=== PATIENT | male | born 1995 | race Caucasian/White ===

== ENCOUNTER 2020-10-26 16:42 | Emergency (ER) | payer OTHER ==
[~2020-10-26] VITALS: Ht 188 cm; Wt 79.4 kg
[2020-10-26 17:17] LABS: ANION GAP 11 mmol/L (7-16); BUN 14 mg/dL (7-18); CALCIUM 9.6 mg/dL (8.5-10.1); CHLORIDE 104 mmol/L (98-107); CO2 26 mmol/L (21-32); CREATININE 1.1 mg/dL (0.7-1.3); GLUCOSE 86 mg/dL (74-106); SODIUM 141 mmol/L (136-145)
[2020-10-26 17:26] LABS: HEMATOCRIT 47.4 % (42.0-52.0); HEMOGLOBIN 15.8 gm/dL (14.0-18.0); MCH 30.8 pg (26.0-34.0); MCHC 33.5 g/dL (28.0-37.0); RBC 5.15 mil/uL (4.50-6.00); RDW 12.7 % (10.5-14.5); TROPONIN-I <0.06 ng/mL (<0.06); WBC 11.3 thou/uL (4.0-11.0)
[2020-10-26 18:02] LABS: PLATELET COUNT 199 thou/uL (150-400)
[2020-10-26 18:03] LABS: ANISOCYTOSIS 1+; HYPOCHROMASIA SLIGHT
[2020-10-26 18:10] VITALS: BP 111/55
--- NOTE | 2020-10-27 14:36 | EKG ---
[address] [address] ELECTROCARDIOGRAM REPORT Name: RAIMUNDO WANG [id number] Admission: 10/26/20 Attend Phys: Discharge: 10/26/20 Date of : [birth year] Report #: [id number] [facility] ED Test Date: 2020-10-26 Test Time: 16:49:03 Pat Name: RAIMUNDO WANG Department: Room: Gender: Cabin Crew: SONYA : 1995 Requested By: Joaquin Treviño Order Number: [id number] MD: Devonte Raya Measurements Intervals [place] Rate: 105 P: 64 [place]: 137 QRS: 48 QRSD: 84 T: 3 QT: 314 QTc: 416 Interpretive Statements Sinus tachycardia Atrial premature complex No previous ECG available for comparison Electronically Signed On 10-27-2020 14:36:51 CDT by Devonte Raya [email or web address] <ELECTRONICALLY SIGNED> By: Devonte Raya MD, [facility] 10/27/20 1436 1649 1649 Devonte Raya MD, FACC /EPI
== END 2020-10-26 18:10 | disposition home or self-care (01) ==
LOC: ER 16:42
PROVIDERS: Nurse Practitioner
DX: R42 Dizziness and giddiness (principal); H53.8 Other visual disturbances; H57.89 Other specified disorders of eye and adnexa; Z90.49 Acquired absence of other specified parts of digestive tract; Z88.4 Allergy status to anesthetic agent; Z88.8 Allergy status to other drugs, medicaments and biological substances; Z88.6 Allergy status to analgesic agent

== ENCOUNTER 2020-10-29 14:23 | Observation (INO) | payer OTHER ==
[~2020-10-29] VITALS: Ht 188 cm; Wt 80.3 kg
[2020-10-29 14:27] VITALS: BP 118/89
[2020-10-29 14:56] LABS: ABSOLUTE NEUTROPHILS 4.3 thou/uL (1.4-8.2); BASOPHILS 0.7 % (0.0-2.0); EOSINOPHILS 0.6 % (0.0-3.0); HEMOGLOBIN 14.7 gm/dL (14.0-18.0); LYMPHOCYTES 18.8 % (24.0-44.0); MCH 31.3 pg (26.0-34.0); MCHC 34.3 g/dL (28.0-37.0); MCV 91.5 fL (80.0-100.0); MONOCYTES 10.5 % (1.0-8.0); PLATELET COUNT 173 thou/uL (150-400); POLYS 69.4 % (36.0-66.0); RDW 13.1 % (10.5-14.5); WBC 6.2 thou/uL (4.0-11.0)
[2020-10-29 15:07] LABS: CALCIUM 9.5 mg/dL (8.5-10.1); POTASSIUM 3.8 mmol/L (3.5-5.1)
[2020-10-29 15:14] LABS: ALBUMIN 4.1 g/dL (3.4-5.0); TOTAL BILIRUBIN 0.5 mg/dL (0.2-1.0); TOTAL PROTEIN 7.5 g/dL (6.4-8.2)
[2020-10-29 23:37] VITALS: BP 125/75
[2020-10-29 23:42] LABS: HEMATOCRIT 41.4 % (42.0-52.0); HEMOGLOBIN 13.7 gm/dL (14.0-18.0)
[2020-10-30] VITALS (10 sets, daily range): BP systolic 98–144; BP diastolic 43–74
[2020-10-30 05:47] LABS: HEMATOCRIT 40.3 % (42.0-52.0); HEMOGLOBIN 13.5 gm/dL (14.0-18.0)
--- NOTE | 2020-10-30 08:17 | NUR ---
ASSESSMENT: CM REVIEWED CHART AND SPOKE WITH PATIENT AT THE BEDSIDE. PT IS ALERT AND ORIENTED X4. PT WAS ADMITTED DUE TO ABDOMINAL PAIN WITH EMESIS THAT WAS RED IN COLOR. PT REPORTS THAT HE LIVES IN AN APT WITH HIS FIANCE. PT REPORTS THAT HE IS ON THE BOTTOM FLOOR SO HAS NO STEPS TO ENTER. PT STATES HE IS FULLY INDEPENDENT WITH ADLS AND AMBULATION. PT REPORTS HE HAS NO PAST HX OF HH. PT REPORTS HIS PCP IS. DR. RANDI SHIELDS. CM DISCUSSED ROLE, PT DOES NOT ANTICIPATE HAVING ANY NEEDS FROM CM. CONSULT IS IN FOR GASTROENTEROLOGY AND AWAITING FURTHER RECOMMENDATIONS AT THIS TIME.
--- NOTE | 2020-10-30 12:57 | NUR ---
PATIENT ARRIVED TO ROOM 433 FROM ER AT 0735. PATEINT ALERT AND ORINT X4, ON ROOM AIR, VITAL SIGNS STABLE, AFBRILE, NPO FOR PROCEDURE LATER TODAY, UP WITH SBA, VOIDED PER URINAL DUMPED BEFORE KNOWING WE NEEDED A UA. RN DOUBLE CHECK ORDERS, WE DO NEED A URINE, LET US KNOW WHEN YOU NEED TO VOID AGAIN AND MAKE SURE NO MATTER WHO IT IS LET THEM KNOW THAT WE NEED A SAMPLE, COVID TEST AND QUESTIONARE DONE FOR PROCEDURE, PATIENT SALINE LOCKED AND LEFT FLOOR AT 1250.
[2020-10-30] MEDS ORDERED: ZOFRAN 4 MG ORAL4 MG PO (15:44)
[2020-10-30] MEDS ORDERED: PROTONIX40 M2 PO (15:44)
--- NOTE | 2020-10-30 17:59 | NUR ---
RN WENT OVER ALL DISCHARGE TEACHING, ALL QUESTIONS ANSWERED, IV OUT, AND WHEELED OUT IN WHEELCHAIR.
--- NOTE | 2020-10-31 13:24 | P ---
[facility] [place] [address] PROCEDURE REPORT Name: RAIMUNDO WANG Room #: 433-[address] [facility] Lucila Beck#: [id number] Admission: 10/29/20 Attend Phys: Gracia Calvo MD Discharge: 10/30/20 Date of : [birth year] Report #: [id number] THIS REPORT FOR: cc: Cherelle Burkett MD, Rebeca A. MD McElhinney, Christian C. MD ~ cc: Gracia Calvo MD DATE OF SERVICE: 10/30/2020 PROCEDURE PERFORMED: Upper endoscopy with biopsies. HISTORY OF PRESENT ILLNESS: The patient is a 25-year-old male with recent nausea, vomiting, hematemesis or coffee-ground emesis. He had been finishing a course of doxycycline, later had Zithromax as well. Several days ago, had a dark red stool, then had several days of nausea and vomiting, later coffee ground type emesis. He had a large paraesophageal hernia apparently and a history of reflux and this was repaired on August 22 of this year. He did initially have dysphagia, but denies any dysphagia at this time. His hemoglobin on admission 14.7, 13.5 today. Plan is for upper endoscopy. DESCRIPTION OF PROCEDURE: The risks and benefits of the procedure were explained to the patient, those risks including but not limited to bleeding, perforation and the risk of sedation. He understood these risks and gave informed consent. Sedation was given using propofol per anesthesia. Next, using a standard Olympus upper endoscope, the scope was placed in the patient's mouth and advanced under direct vision through the esophagus, stomach and into the second portion of the duodenum. In the upper esophagus, a small inlet patch was noted, otherwise, normal. The mid and distal esophagus was normal. GE junction was normal. No evidence of esophagitis or Jessica-Regan tear. There was a mild diffuse gastritis. No evidence of bleeding. No evidence of old blood throughout the exam today. On retroflexion, the fundoplication appears to be intact. The gastric antrum was normal. The pylorus was normal and patent. The duodenal bulb, first and second portion were all normal. The scope was brought back up into the patient's stomach. Biopsies were obtained to rule out the possibility of H. pylori. The scope was then withdrawn and the procedure terminated. The patient tolerated the procedure well. IMPRESSION: 1. Mild gastritis. Possible source of recent coffee-ground emesis. No evidence of bleeding at this time. 2. Surgical changes of fundoplication noted. 3. Otherwise, normal upper endoscopy. RECOMMENDATIONS: 1. Await biopsies. [address] [address] PROCEDURE REPORT Name: RAIMUNDO WANG Rosemary Room #: 433-[address] [facility] Lucila Beck#: [id number] Admission: 10/29/20 Attend Phys: Gracia Calvo MD Discharge: 10/30/20 Date of : [birth year] Report #: [id number] 2. Advance diet as tolerated. If no further nausea or vomiting, would recommend discharge and observing. Thank you for allowing me to participate in his care. <ELECTRONICALLY SIGNED> By: Daniel Palaico MD 10/31/20 1324 1340 2245 Daniel Palacio MD /nt
--- NOTE | 2020-11-01 17:06 | PATH ---
[facility] [place] [address] PATHOLOGY RPT PROCEDURE Name: RAIMUNDO HORNE Room #: 433[facility]I [facility] Lucila Beck#: [id number] Admission: 10/29/20 Date of : [birth year] Discharge: 10/30/20 Report #: [id number] Path Case #: [id number] [facility] Accession Number: [id number] . 01 Material submitted: . stomach - BIOPSY GASTRITIS RULE OUT H. PYLORI. Modifiers: GASTRIC . 01 Clinical history: . EGD HEMATEMESIS ABD PAIN, UPPER GI BLEED . 02 Diagnosis: Gastric mucosa, gastritis R/O H. pylori, endoscopic biopsy: - Mild chronic inflammation. - Negative for intestinal metaplasia or atrophy. - Negative for Helicobacter pylori (properly controlled immunohistochemical stain performed). (IUV:derek; 11/01/2020) QMS 11/01/2020 1628 Local . 02 Electronically signed: . Abbie Frausto MD, Pathologist NPI- [id number] . 01 Gross description: . The specimen is received in formalin, labeled "Raimundo Horne and BX gastritis R/O H. pylori". It consists of 4 wellington irregular soft tissue fragments measuring 0.6 x 0.5 x 0.2 cm in aggregate. The specimen is entirely submitted between sponges in A1. (MRF; 10/31/2020) MFE/MFE 11/01/2020 1627 Local . 02 Pathologist provided ICD-10: K29.50 . 02 CPT . 111949, [id number] Specimen Comment: A courtesy copy of this report has been sent to [phone] Specimen Comment: 1886, Specimen Comment: Report sent to , DR SHIELDS / DR MOONEY Performed at: [address], [place], [place] [id number] MD Vineet Fontana MD Phone: [phone] Performed at: 02 [place] [address] PATHOLOGY RPT PROCEDURE Name: JERI HORNEEN W Room #: 433-I [facility] Lucila Beck#: [id number] Admission: 10/29/20 Date of : [birth year] Discharge: 10/30/20 Report #: [id number] Path Case #: [id number] [facility] [address] [id number] MD Abbie Frausto MD Phone: [phone]
== END 2020-10-30 18:28 | disposition home or self-care (01) ==
LOC: ER 14:23 → EROBS 18:43 → 4S 10-30 07:46
PROVIDERS: Emergency Medicine; ADMIT Hospitalist; ATTEND Hospitalist
DX: K29.00 Acute gastritis without bleeding (principal); K92.2 Gastrointestinal hemorrhage, unspecified; H53.8 Other visual disturbances; Z87.891 Personal history of nicotine dependence; Z79.899 Other long term (current) drug therapy; Z20.822 Contact with and (suspected) exposure to COVID-19
CPT/HCPCS: 62110; 62900; 70005

== ENCOUNTER 2020-11-03 15:12 | Inpatient (IN) | payer OTHER ==
[~2020-11-03] VITALS: Ht 188 cm; Wt 70.8 kg
[~2020-11-03 15:12] MED LIST: PROTONIX40 M2 PO; ZOFRAN 4 MG ORAL4 MG PO
[2020-11-03 15:16] VITALS: BP 116/88
[2020-11-03] MEDS ORDERED: ATIVAN0.5 M1 PO (15:31)
[2020-11-03 15:58] LABS: ABSOLUTE NEUTROPHILS 5.7 thou/uL (1.4-8.2); BASOPHILS 0.9 % (0.0-2.0); EOSINOPHILS 0.6 % (0.0-3.0); HEMATOCRIT 46.2 % (42.0-52.0); HEMOGLOBIN 15.5 gm/dL (14.0-18.0); LYMPHOCYTES 22.1 % (24.0-44.0); MCHC 33.7 g/dL (28.0-37.0); MCV 91.9 fL (80.0-100.0); MONOCYTES 10.1 % (1.0-8.0); PLATELET COUNT 194 thou/uL (150-400); POLYS 66.3 % (36.0-66.0); RBC 5.02 mil/uL (4.50-6.00); RDW 12.8 % (10.5-14.5); WBC 8.7 thou/uL (4.0-11.0)
[2020-11-03 16:03] LABS: CALCIUM 9.4 mg/dL (8.5-10.1); CREATININE 1.1 mg/dL (0.7-1.3); POTASSIUM 3.8 mmol/L (3.5-5.1)
[2020-11-03 16:10] LABS: ALBUMIN 4.4 g/dL (3.4-5.0); TOTAL BILIRUBIN 0.4 mg/dL (0.2-1.0)
[2020-11-03 16:21] LABS: URINE BILIRUBIN NEGATIVE (Negative); URINE BLOOD NEGATIVE (Negative); URINE CLARITY CLEAR; URINE COLOR YELLOW; URINE GLUCOSE-RANDOM* NEGATIVE (Negative); URINE KETONES NEGATIVE (Negative); URINE LEUKOCYTES-REFLEX NEGATIVE (Negative); URINE NITRITE-REFLEX NEGATIVE (Negative); URINE PROTEIN (DIPSTICK) NEGATIVE (Negative); URINE SPECIFIC GRAVITY 1.015 (1.005-1.035); URINE UROBILINOGEN 0.2 E.U./dl (0.2-1.0)
[2020-11-03 16:36] LABS: AMP/METHAMP Negative (Negative); BARBITURATES Negative (Negative); BENZODIAZEPINES Negative (Negative); COCAINE Negative (Negative); METHADONE Negative (Negative); OPIATES Negative (Negative); PCP Negative (Negative)
[2020-11-03 21:43] VITALS: BP 105/55
--- NOTE | 2020-11-04 01:23 | NUR ---
PT ARRIVED TO UNIT APPROX 2157. CONSENTS OBTAINED, ADMISSION PACKET PROVIDED, PT ORIENTED TO ROOM AND UNIT. PT AOX4. PT REPORTS 10/10 ABDOMINAL PAIN. PT DENIES SOB WHILE ON ROOM AIR. PT NPO UPON ARRIVAL TO UNIT, PRN PO APAP Q6HR AVAILABLE. ONCALL MASH FILTER PRESS OPERATOR NOTIFIED, PT TO BE SEEN, EMAR UPDATED. PT RECEIVING PRN IV MORPHINE Q4HR WITH POSITIVE EFFECT. PT RESTING IN BED THROUGHOUT SHIFT, AMBULATES INDEPENDENTLY OTHERWISE. FREQUENT REPOSITIONING ENCOURAGED WHILE IN BED, PT NOTED TO SHIFT INDEPENDENTLY. PT VOIDING PER URINAL, INTERMITTENTLY USING BATHROOM OTHERWISE. PT INTERMITTENTLY REPORTING NAUSEA, REFUSING PRN IV ZOFRAN Q6HR. PT ENCOURAGED TO NOTIFY STAFF FOR ALL NEEDS, CALL LIGHT WITHIN REACH, BED LOCKED IN LOWEST POSITION, FREQUENT MONITORING WILL CONTINUE.
[2020-11-04 05:26] LABS: HEMATOCRIT 39.7 % (42.0-52.0); HEMOGLOBIN 13.3 gm/dL (14.0-18.0); MCH 31.1 pg (26.0-34.0); MCHC 33.5 g/dL (28.0-37.0); MCV 92.7 fL (80.0-100.0); RBC 4.29 mil/uL (4.50-6.00); RDW 12.9 % (10.5-14.5); WBC 7.3 thou/uL (4.0-11.0)
[2020-11-04 05:38] LABS: CALCIUM 8.2 mg/dL (8.5-10.1); CREATININE 0.9 mg/dL (0.7-1.3); POTASSIUM 3.7 mmol/L (3.5-5.1)
[2020-11-04 07:00] VITALS: BP 85/47
--- NOTE | 2020-11-04 09:48 | NUR ---
ASSESSMENT: CM REVIEWED CHART AND SPOKE WITH PATIENT AT THE BEDSIDE. PT IS ALERT AND ORIENTED X4. PT WAS ADMITTED DUE TO BLOOD IN STOOL AND INTRACTABLE PAIN. PT REPORTS LIVING WITH HIS FIANCE. PT REPORTS BEING FULLY INDEPENDENT WITH ADLS AND AMBULATION. PT REPORTS NO HX OF HH. PT STATES HIS PCP IS DR. RANDI SHIELDS. CM DISCUSSED ROLE. PT DOES NOT ANTICIPATE HAVING ANY NEEDS FROM CM. CM WILL CONTINUE TO FOLLOW TO ASSIST NEEDED.
--- NOTE | 2020-11-04 15:03 | NUR ---
PATIENT A&OX4. VERY PLEASANT. COMPLAINS OF ABDOMEN AND RECTAL PAIN. PATIENT HAS NOT SHOWN ANY BLOOD FROM RECTUM AT THIS TIME. PHYSICIAN MADE CHANGES TO PAIN MEDICATION. COLONOSCOPY SCHEDULED FOR TOMORROW. PATIENT WILL BE NPO AFTER MIDNIGHT. PATIENT PUT ON LIQUID DIET UNTIL MIDNIGHT. IV FLUIDS REMAIN INFUSING. NO FURTHER COMPLAINTS AT THIS TIME. WILL CONTINUE TO MONITOR.
--- NOTE | 2020-11-04 15:15 | EKG ---
[address] [address] ELECTROCARDIOGRAM REPORT Name: RAIMUNDO WANG Room #: 441- ADM IN M.R.#: [id number] Admission: 11/03/20 Attend Phys: Hong Ramos MD Discharge: Date of : [birth year] Report #: [id number] [facility] ED Test Date: 2020-11-03 Test Time: 15:31:42 Pat Name: RAIMUNDO WANG Department: Room: 441 Gender: M Teaching Artist: MEAGN : 1995 Requested By: Hong Ramos Order Number: [id number] MD: Amrik Bowling Measurements Intervals [place] Rate: 87 P: 66 SC: 138 QRS: 62 QRSD: 85 T: 43 QT: 337 QTc: 406 Interpretive Statements Sinus rhythm Compared to ECG 10/26/2020 16:49:03 Sinus tachycardia no longer present Atrial premature complex(es) no longer present Electronically Signed On 11-04-2020 15:15:07 CDT by Amrik Bowling [email or web address] <ELECTRONICALLY SIGNED> By: Amrik Bowling MD, [facility] 11/04/20 1515 153 30 Amrik Bowling MD, FAC /EPI
[2020-11-04 15:53] VITALS: BP 129/67
[2020-11-04 20:10] VITALS: BP 98/51
[2020-11-05 02:40] VITALS: BP 107/58
--- NOTE | 2020-11-05 03:26 | NUR ---
Pt. c/o nausea and was spitting up a small amount clear colored emesis. Prn zofran given (see emar) with some relief noted. IV push toradol also given (see emar) for c/o abdominal pain. No rectal bleeding observed. Currently npo for colonoscopy this am. Pt. took shower during the night.
--- NOTE | 2020-11-05 05:30 | NUR ---
Pt. became angry this morning and wanted his ivf stopped for awhile. He said it was stinging him. This nurse flushed his iv line and it flushed without difficulty. Pt. also upset about his iv sounding off.
[2020-11-05 08:59] VITALS: BP 106/44
[2020-11-05 10:59] LABS: HEMATOCRIT 41.5 % (42.0-52.0); HEMOGLOBIN 13.6 gm/dL (14.0-18.0)
[2020-11-05] MEDS ORDERED: ANUCORT-HC25 MG RECTAL (15:01)
--- NOTE | 2020-11-05 15:37 | NUR ---
ON-GOING ASSESSMENT: CM REVIEWED CHART. PT HAD SCOPE DONE TODAY. PT HAS ORDERS TO DISCHARGE HOME TODAY NO NEEDS. CASE CLOSED.
[2020-11-05 16:07] VITALS: BP 106/44
== END 2020-11-05 17:16 | disposition home or self-care (01) | DRG 394 ==
LOC: ER 15:12 → EROBS 20:48 → 4S 20:48
PROVIDERS: Hospitalist; Nurse Practitioner Family; Physician Assistant; ADMIT Internal Medicine; ATTEND Internal Medicine
PROC: 0DJD8ZZ Inspection of Lower Intestinal Tract, Via Natural or Artificial Opening Endoscopic (ICD-10-PCS; principal; 2020-11-05)
DX: K64.9 Unspecified hemorrhoids (principal); K92.2 Gastrointestinal hemorrhage, unspecified; K21.9 Gastro-esophageal reflux disease without esophagitis; F41.9 Anxiety disorder, unspecified; F43.10 Post-traumatic stress disorder, unspecified; K59.00 Constipation, unspecified; F12.90 Cannabis use, unspecified, uncomplicated; Z90.49 Acquired absence of other specified parts of digestive tract; Z87.891 Personal history of nicotine dependence; Z91.09 Other allergy status, other than to drugs and biological substances; Z79.899 Other long term (current) drug therapy; Z88.1 Allergy status to other antibiotic agents; Z88.8 Allergy status to other drugs, medicaments and biological substances
CPT/HCPCS: 10102; 62110; 62900; 70005

== ENCOUNTER 2020-11-11 19:37 | Emergency (ER) | payer OTHER ==
[~2020-11-11] VITALS: Ht 188 cm; Wt 74.8 kg
[~2020-11-11 19:37] MED LIST changes: +ANUCORT-HC25 MG RECTAL; +ATIVAN0.5 M1 PO
[2020-11-11] MEDS ORDERED: VANCOMYCIN HCL250 MG PO (21:14)
[2020-11-11] MEDS ORDERED: DICYCLOMINE HCL20 MG PO (21:14)
[2020-11-11 21:15] LABS: BASOPHILS 0.5 % (0.0-2.0); EOSINOPHILS 1.2 % (0.0-3.0); HEMATOCRIT 40.9 % (42.0-52.0); HEMOGLOBIN 13.7 gm/dL (14.0-18.0); LYMPHOCYTES 24.3 % (24.0-44.0); MCHC 33.4 g/dL (28.0-37.0); MCV 92.9 fL (80.0-100.0); MONOCYTES 10.7 % (1.0-8.0); PLATELET COUNT 184 thou/uL (150-400); POLYS 63.3 % (36.0-66.0); RBC 4.41 mil/uL (4.50-6.00); RDW 12.8 % (10.5-14.5); WBC 7.9 thou/uL (4.0-11.0)
[2020-11-11 21:33] LABS: CALCIUM 8.8 mg/dL (8.5-10.1); POTASSIUM 3.9 mmol/L (3.5-5.1)
[2020-11-11 22:15] VITALS: BP 153/79
== END 2020-11-11 22:16 | disposition home or self-care (01) ==
LOC: ER 19:37
PROVIDERS: Nurse Practitioner
DX: R10.9 Unspecified abdominal pain (principal); Z90.49 Acquired absence of other specified parts of digestive tract; Z98.890 Other specified postprocedural states; Z79.899 Other long term (current) drug therapy; Z79.891 Long term (current) use of opiate analgesic; Z88.5 Allergy status to narcotic agent; Z88.8 Allergy status to other drugs, medicaments and biological substances; Z88.4 Allergy status to anesthetic agent; Z88.1 Allergy status to other antibiotic agents; Z91.040 Latex allergy status; Z87.891 Personal history of nicotine dependence

== ENCOUNTER 2020-12-18 01:19 | Emergency (ER) | payer OTHER ==
[~2020-12-18] VITALS: Ht 188 cm; Wt 74.8 kg
[~2020-12-18 01:19] MED LIST changes: +DICYCLOMINE HCL20 MG PO; +VANCOMYCIN HCL250 MG PO
[2020-12-18] MEDS ORDERED: PEPCID20 MG PO (01:37)
[2020-12-18] MEDS ORDERED: MECLIZINE HCL25 M1 PO (02:29)
[2020-12-18 02:53] VITALS: BP 111/62
--- NOTE | 2020-12-20 12:13 | EKG ---
[place] [place] [address] ELECTROCARDIOGRAM REPORT Name: RAIMUNDO WANG [facility] [id number] Admission: 12/18/20 Attend Phys: Discharge: 12/18/20 Date of : [birth year] Report #: [id number] [facility] ED Test Date: 2020-12-18 Test Time: 01:30:54 Pat Name: RAIMUNDO WANG Department: Room: Gender: Rn Rehabilitation: ARIEL : 1995 Requested By: Augusto Stone Order Number: [id number] MD: Devonte Raya Measurements Intervals [place] Rate: 73 P: 48 HI: 149 QRS: 66 QRSD: 84 T: 59 QT: 378 QTc: 417 Interpretive Statements Sinus rhythm No significant abnormality Compared to ECG 11/03/2020 15:31:42 No significant changes Electronically Signed On 12-20-2020 12:13:13 CDT by Devonte Raya [email or web address] <ELECTRONICALLY SIGNED> By: Devonte Raya MD, [facility] 12/20/20 1213 0130 0130 Devonte Raya MD, FAC /EPI
== END 2020-12-18 02:53 | disposition home or self-care (01) ==
LOC: ER 01:19
DX: R51.9 Headache, unspecified (principal); Z90.49 Acquired absence of other specified parts of digestive tract; Z98.890 Other specified postprocedural states; Z79.899 Other long term (current) drug therapy; Z88.6 Allergy status to analgesic agent; Z88.4 Allergy status to anesthetic agent; Z88.5 Allergy status to narcotic agent; Z88.8 Allergy status to other drugs, medicaments and biological substances; Z91.048 Other nonmedicinal substance allergy status; Z87.891 Personal history of nicotine dependence